=== PATIENT | female | born 1965 ===

== ENCOUNTER 2019-12-10 10:01 | Emergency (ER) | payer OTHER ==
--- NOTE | 2019-12-10 12:03 | EDPHYS ---
Physician Documentation [facility] Name: Meri Travis Age: 54 yrs Sex: Female : 1965 Arrival Date: 12/10/2019 Time: 10:05 Bed 5 Private MD: KRYSTAL Physician Ben Romano HPI: 12/09 10:50 This 54 yrs old Female presents to ER via Ambulatory with complaints of Cough, Head cp Problem. 10:50 The patient or guardian reports cough, that is intermittent. Onset: The cp symptoms/episode began/occurred 2 day(s) ago. Associated signs and symptoms: Pertinent positives: chills, subjective fever. 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 - Social history:: Smoking status: Patient denies any tobacco usage or history of. ROS: 11:00 Constitutional: Positive for chills, Negative for fever, poor PO intake. cp 11:00 Eyes: Negative for injury, pain, redness, and discharge. cp 11:00 ENT: Negative for ear pain, sore throat, difficulty swallowing, difficulty handling secretions. 11:00 Cardiovascular: Negative for chest pain. 11:00 Respiratory: Positive for cough, with no reported sputum, Negative for shortness of breath, wheezing. 11:00 Abdomen/GI: Negative for abdominal pain, nausea, vomiting, and diarrhea. 11:00 Skin: Negative for rash. 11:00 Neuro: Positive for headache, Negative for altered mental status, weakness. 11:00 All other systems are negative. Exam: 11:05 Constitutional: The patient appears in no acute distress, alert, awake, non-toxic, well cp developed, well nourished. 11:05 Head/Face: Normocephalic, atraumatic. cp 11:05 Eyes: Periorbital structures: appear normal, Conjunctiva: normal, no exudate, no injection, Lids and lashes: appear normal, bilaterally. 11:05 ENT: External ear(s): are unremarkable, Ear canal(s): are normal, clear, TM's: bulging, is not appreciated, bilaterally, dullness, bilaterally, erythema, is not appreciated, bilaterally, Nose: is normal, Posterior pharynx: Airway: no evidence of obstruction, patent. 11:05 Neck: Lymph nodes: no appreciated lymphadenopathy. 11:05 Chest/axilla: Inspection: normal, Palpation: is normal, no crepitus, no tenderness. 11:05 Cardiovascular: Rate: normal, Rhythm: regular. 11:05 Respiratory: the patient does not display signs of respiratory distress, Respirations: normal, no use of accessory muscles, no appreciated paradoxical movements, no prolonged exhalations, labored breathing, is not present, Breath sounds: are clear throughout, no decreased breath sounds, no stridor, no wheezing. 11:05 Abdomen/GI: Exam negative for discomfort, distension, guarding, Inspection: abdomen appears normal. Vital Signs: 10:24 BP 124 / 71; Pulse 64; Resp 18 S; Temp 98.8(TE); Pulse Ox 98% on R/A; Weight 97.52 kg; iw Height 5 ft. 5 in. (165.10 cm); 12:10 Weight 35.38 kg (M); iw 12:10 Body Mass Index 12.98 (35.38 kg, 165.10 cm) iw MDM: 10:34 Patient medically screened. ramírez 11:00 Differential Diagnosis: Bronchitis Influenza Otitis Media Viral Syndrome Pneumonia cp Other COVID-19. 12:00 Data reviewed: vital signs, nurses notes, lab test result(s), and as a result, I will cp discharge patient. 12:00 Counseling: I had a detailed discussion with the patient and/or guardian regarding: the cp historical points, exam findings, and any diagnostic results supporting the discharge/admit diagnosis, lab results, to return to the emergency department if symptoms worsen or persist or if there are any questions or concerns that arise at home. ED course: VSS. Patient appears non-toxic and no signs of respiratory distress observed. Will discharge to home and patient instructed to quarantine while awaiting results of COVID-19 testing. 12/09 10:39 Order name: Influenza Screen (a \T\ B) cp 12/09 10:39 Order name: COVID-19 cp Administered Medications: No medications were administered Disposition: 18:20 Co-signature as Attending Physician, Ben Romano MD I agree with the assessment and ramírez plan of care. Disposition: 12/10/19 12:02 Discharged to Home. Impression: Acute upper respiratory infection, unspecified. - Condition is Stable. - Discharge Instructions: Upper Respiratory Infection, Adult, COVID-19. - Prescriptions for Tessalon Perles 100 mg Oral Capsule - take 2 capsule by ORAL route every 8 hours As needed; 30 capsule. - Medication Reconciliation Form, Thank You Letter, Antibiotic Education, Prescription Opioid Use form. - Follow up: Private Physician; When: 2 - 3 days; Reason: Worsening of condition. - Problem is new. - Symptoms are unchanged. Addendum: 12/13/2019 08:08 Addendum: Pt notified of positive test result 12/13/2019, at 0807, feeling ok, not r n worse. Questions answered. . Signatures: Dispatcher [employer] EDBen Echeverria MD MD cha Williams, Irene, RN RN iw Marco Antonio Travis MD MD rn Page, Corey, PA PA Olegario Hall, RN RN jl7 Corrections: (The following items were deleted from the chart) 12/09 12:14 12:02 12/10/2019 12:02 Discharged to Home. Impression: Acute upper respiratory iw infection, unspecified. Condition is Stable. Forms are Medication Reconciliation Form, Thank You Letter, Antibiotic Education, Prescription Opioid Use. Follow up: Private Physician; When: 2 - 3 days; Reason: Worsening of condition. Problem is new. Symptoms are unchanged. cp 12/10 06:56 12/09 10:45 Differential Diagnosis: Bronchitis Influenza Otitis Media Viral Syndrome cp Pneumonia Other COVID-19 cp
--- NOTE | 2019-12-10 12:03 | ER ---
Nurse's Notes [facility] Name: Meri Travis Age: 54 yrs Sex: Female : 1965 Arrival Date: 12/10/2019 Time: 10:05 Bed 5 Private MD: Diagnosis: Acute upper respiratory infection, unspecified Presentation: 12/09 10:24 Chief complaint: Patient states: yesterday cough and last night had chills and iw headache, was at work an was coughing a lot, no fever. Coronavirus screen: chills, cough unrelated to allergies. Ebola Screen: Patient negative for fever greater than or equal to 101.5 degrees Fahrenheit, and additional compatible Ebola Virus Disease symptoms Patient denies exposure to infectious person. Patient denies travel to an Ebola-affected area in the 21 days before illness onset. No symptoms or risks identified at this time. Initial Sepsis Screen: Does the patient meet any 2 criteria? No. Patient's initial sepsis screen is negative. Does the patient have a suspected source of infection? No. Patient's initial sepsis screen is negative. Risk Assessment: Do you want to hurt yourself or someone else? Patient reports no desire to harm self or others. Onset of symptoms was December 09, 2019. 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 - Social history:: Smoking status: Patient denies any tobacco usage or history of. Screenin:59 Abuse screen: Denies threats or abuse. Denies injuries from another. Nutritional jl7 screening: No deficits noted. Tuberculosis screening: No symptoms or risk factors identified. Fall Risk None identified. Assessment: 10:59 General: Appears in no apparent distress. uncomfortable, Behavior is calm, cooperative, jl7 appropriate for age. Pain: Complains of pain in sore throat. Neuro: Level of Consciousness is awake, alert, obeys commands, Oriented to person, place, time, situation. Cardiovascular: Patient's skin is warm and dry. Respiratory: Airway is patent Respiratory effort is even, unlabored, Respiratory pattern is regular, symmetrical. GI: Patient currently denies diarrhea, nausea, vomiting. Derm: Skin is pink, warm \T\ dry. 11:45 Reassessment: gela Gupta reports Flu swab is still incubating and should be done jl7 in 5 minutes. Vital Signs: 10:24 BP 124 / 71; Pulse 64; Resp 18 S; Temp 98.8(TE); Pulse Ox 98% on R/A; Weight 97.52 kg; iw Height 5 ft. 5 in. (165.10 cm); 12:10 Weight 35.38 kg (M); iw 12:10 Body Mass Index 12.98 (35.38 kg, 165.10 cm) iw ED Course: 10:05 Patient arrived in ED. ag5 10:26 Triage completed. iw 10:29 Ben Russ PA is PHCP. cp 10:29 Ben Romano MD is Attending Physician. cp 10:40 Olegario Farrell RN is Primary Nurse. jl7 10:56 Flu and/or RSV swab sent to lab. COVID19 swab sent to lab. jl7 10:59 Patient has correct armband on for positive identification. Bed in low position. Call jl7 light in reach. Side rails up X 1. 11:27 Arm band placed on right wrist. jl7 11:45 Awaiting lab results. jl7 12:14 No provider procedures requiring assistance completed. Patient did not have IV access iw during this emergency room visit. Administered Medications: No medications were administered Outcome: 12:02 Discharge ordered by . cp 12:14 Discharged to home ambulatory. iw 12:14 Condition: good 12:14 Discharge instructions given to patient, Instructed on discharge instructions, follow up and referral plans. medication usage, Demonstrated understanding of instructions, follow-up care, medications, Prescriptions given X 1. 12:14 Patient left the ED. iw Signatures: Lani Bright RN RN iw Ben Russ PA PA cp Olegario Farrell RN RN jl7 Alfred Valdez ag5 Corrections: (The following items were deleted from the chart) 10:27 10:24 Pulse 64bpm; Resp 18bpm; Spontaneous; Pulse Ox 98% RA; Temp 98.8F Temporal; 97.52 iw kg; Height 5 ft. 5 in.; BMI: 35.7; iw 11: 10:59 Patient has correct armband on for positive identification. Placed in gown. Bed [facility] in low position. Call light in reach. Side rails up X 1. 10:59 floor associate on. Pulse ox on. NIBP on. [facility] : 10:59 Warm blanket given.
[2019-12-10 12:25] VITALS: BP 124/71; TEMP 98.8; O2SAT 98
== END 2019-12-10 12:14 | disposition home or self-care (01) ==
LOC: ER 10:01
DX: U07.1 COVID-19 (principal); J06.9 Acute upper respiratory infection, unspecified
CPT/HCPCS: 87804 ×2; 99283; U0002